=== PATIENT | female | born 1945 | race Caucasian/White ===

== ENCOUNTER → 2020-04-24 | Outpatient (CLI) | payer MEDICARE ==
[~2020-04-24] MED LIST: LORTAB 500 MG-71 TAB PO; PERCOCET 325 MG1 TA2 PO; PREMARIN V0.625 MG/G T; PROTONIX40 MG PO; TYLENOL650 M1 PO
== END | disposition home or self-care (01) ==
LOC: COVID19 02:29
PROVIDERS: ATTEND Family Medicine
DX: Z20.828 Contact with and (suspected) exposure to other viral communicable diseases (principal)

== ENCOUNTER → 2020-07-31 | Outpatient (CLI) | payer MEDICARE | END | disposition home or self-care (01) | LOC: COVID19 15:21 | PROVIDERS: ATTEND Family Medicine | DX: J20.9 Acute bronchitis, unspecified (principal); Z20.828 Contact with and (suspected) exposure to other viral communicable diseases ==

== ENCOUNTER → 2020-11-06 | Outpatient (CLI) | payer MEDICARE ==
[2020-11-06 09:49] VITALS: BP 155/92
== END | disposition home or self-care (01) ==
LOC: INJECTION 08:22
PROVIDERS: ATTEND Family Medicine
DX: M81.0 Age-related osteoporosis without current pathological fracture (principal); K21.9 Gastro-esophageal reflux disease without esophagitis; M19.90 Unspecified osteoarthritis, unspecified site

== ENCOUNTER → 2021-05-07 | Outpatient (CLI) | payer MEDICARE ==
[2021-05-07 10:16] VITALS: BP 141/90
== END | disposition home or self-care (01) ==
LOC: INJECTION 09:56
PROVIDERS: ATTEND Family Medicine
DX: M81.0 Age-related osteoporosis without current pathological fracture (principal)